=== PATIENT | male | born 1990 | race Caucasian/White ===

== ENCOUNTER 2024-11-12 21:07 | Inpatient (IN) | payer BC, OTHER ==
[2024-11-12] MEDS ORDERED: Sodium Chloride 0.9% 10 ML Syringe FLUSH PRN (21:37)
[2024-11-12] MEDS: LORazepam 2 MG/ML SDV IVPUSH ONE ×2 (21:45→23:39)
[2024-11-12 21:47] LABS: BASOPHILS ABSOLUTE AUTO 0.0 K/mm3 (0.0-0.2); BASOPHILS PERCENT AUTO 0.3 % (0.0-1.0); EOSINOPHILS ABSOLUTE AUTO 0.0 K/mm3 (0.0-0.4); EOSINOPHILS PERCENT AUTO 0.0 % (0.0-6.0); IMMATURE GRAN ABSOLUTE AUTO 0.03 K/mm3 (0.00-0.05); IMMATURE GRAN PERCENT AUTO 0.3 % (0.0-0.4); LYMPHOCYTES ABSOLUTE AUTO 0.5 K/mm3 (1.0-4.8); LYMPHOCYTES PERCENT AUTO 4.4 % (24.0-44.0); MEAN PLATELET VOLUME 9.9 fl (9.4-12.4); MONOCYTES ABSOLUTE AUTO 1.4 K/mm3 (0.0-0.8); MONOCYTES PERCENT AUTO 13.4 % (0.0-8.0); NEUTROPHILS ABSOLUTE AUTO 8.4 K/mm3 (1.8-7.7); NEUTROPHILS PERCENT AUTO 81.6 % (41.0-71.0); NRBC ABSOLUTE 0.00 (0.00-0.02); NRBC PERCENT 0.0 % (0.0-0.2); PLATELET COUNT,PLT 223 K/mm3 (150-400); RED BLOOD CELL COUNT 5.47 M/mm3 (4.52-5.90); WHITE BLOOD CELL COUNT,WBC 10.33 K/mm3 (3.9-11.3)
[2024-11-12 21:55] LABS: A/G RATIO 1.0 (1-2); ALANINE AMINOTRANSFERASE,ALT 141.0 U/L (16-63); ASPARTATE AMNIOTRANSFERASE,AST 213.0 U/L (15-37); BILIRUBIN TOTAL 0.9 mg/dL (0.2-1.0); BLOOD UREA NITROGEN,BUN 11.0 mg/dL (7-18); CARBON DIOXIDE,CO2 15.0 mEq/L (21-32); CHLORIDE,CL 93.0 mEq/L (98-107); CREATININE 1.1 mg/dL (0.7-1.3); EST CRCL DRUG DOSING (CG) 97.7 mL/min; ESTIMATED GFR 90.0 mL/min (>60); GLUCOSE RANDOM 106.0 mg/dL (70-99); PROTEIN TOTAL,TP 8.4 g/dl (6.4-8.2); SODIUM,NA 135.0 mEq/L (136-145)
[2024-11-12 22:25] LABS: ETHANOL BLOOD MEDICAL 0.0 gm% (0.00)
[2024-11-12 22:26] LABS: POTASSIUM,K 4.8 mEq/L (3.5-5.1)
[2024-11-12] MEDS: Ondansetron 4 MG/2 ML SDV IVPUSH ONE (23:40)
[2024-11-13] MEDS: LORazepam 2 MG/ML SDV IVPUSH ONE ×2 (00:53→07:27)
[2024-11-13] MEDS ORDERED: LORazepam 2 MG/ML SDV IVPUSH PRN ×2 (00:54→11:10)
[2024-11-13 06:32] LABS: BASOPHILS ABSOLUTE AUTO 0.0 K/mm3 (0.0-0.2); BASOPHILS PERCENT AUTO 0.5 % (0.0-1.0); EOSINOPHILS ABSOLUTE AUTO 0.0 K/mm3 (0.0-0.4); EOSINOPHILS PERCENT AUTO 0.3 % (0.0-6.0); IMMATURE GRAN ABSOLUTE AUTO 0.02 K/mm3 (0.00-0.05); IMMATURE GRAN PERCENT AUTO 0.3 % (0.0-0.4); LYMPHOCYTES ABSOLUTE AUTO 0.9 K/mm3 (1.0-4.8); LYMPHOCYTES PERCENT AUTO 13.7 % (24.0-44.0); MEAN PLATELET VOLUME 9.9 fl (9.4-12.4); MONOCYTES ABSOLUTE AUTO 1.7 K/mm3 (0.0-0.8); MONOCYTES PERCENT AUTO 25.5 % (0.0-8.0); NEUTROPHILS ABSOLUTE AUTO 3.9 K/mm3 (1.8-7.7); NEUTROPHILS PERCENT AUTO 59.7 % (41.0-71.0); NRBC ABSOLUTE 0.00 (0.00-0.02); NRBC PERCENT 0.0 % (0.0-0.2); PLATELET COUNT,PLT 181 K/mm3 (150-400); RED BLOOD CELL COUNT 4.75 M/mm3 (4.52-5.90); WHITE BLOOD CELL COUNT,WBC 6.59 K/mm3 (3.9-11.3)
[2024-11-13 06:35] LABS: A/G RATIO 0.9 (1-2); ALANINE AMINOTRANSFERASE,ALT 110.0 U/L (16-63); ASPARTATE AMNIOTRANSFERASE,AST 188.0 U/L (15-37); BILIRUBIN TOTAL 1.2 mg/dL (0.2-1.0); BLOOD UREA NITROGEN,BUN 10.0 mg/dL (7-18); CARBON DIOXIDE,CO2 23.0 mEq/L (21-32); CHLORIDE,CL 98.0 mEq/L (98-107); CREATININE 0.9 mg/dL (0.7-1.3); EST CRCL DRUG DOSING (CG) 119.41 mL/min; ESTIMATED GFR 115.0 mL/min (>60); GLUCOSE RANDOM 92.0 mg/dL (70-99); PHOSPHORUS 2.3 mg/dL (2.6-4.7); POTASSIUM,K 4.6 mEq/L (3.5-5.1); PROTEIN TOTAL,TP 6.8 g/dl (6.4-8.2); SODIUM,NA 135.0 mEq/L (136-145)
[2024-11-13] MEDS ORDERED: Sennosides/Docusate Sodium 50-8.6 MG Tab PO PRN (11:17)
[2024-11-13] MEDS ORDERED: Acetaminophen/HYDROcodone 325-5 MG Tab PO PRN (11:17)
[2024-11-13] MEDS ORDERED: Ondansetron 4 MG/2 ML SDV IV PRN (11:17)
[2024-11-14 05:51] LABS: A/G RATIO 0.9 (1-2); ALANINE AMINOTRANSFERASE,ALT 96.0 U/L (16-63); ASPARTATE AMNIOTRANSFERASE,AST 150.0 U/L (15-37); BILIRUBIN TOTAL 1.0 mg/dL (0.2-1.0); BLOOD UREA NITROGEN,BUN 8.0 mg/dL (7-18); CARBON DIOXIDE,CO2 27.0 mEq/L (21-32); CHLORIDE,CL 99.0 mEq/L (98-107); CREATININE 0.6 mg/dL (0.7-1.3); EST CRCL DRUG DOSING (CG) 179.12 mL/min; ESTIMATED GFR 130.0 mL/min (>60); GLUCOSE RANDOM 96.0 mg/dL (70-99); PHOSPHORUS 2.1 mg/dL (2.6-4.7); POTASSIUM,K 4.0 mEq/L (3.5-5.1); PROTEIN TOTAL,TP 6.3 g/dl (6.4-8.2); SODIUM,NA 134.0 mEq/L (136-145)
[2024-11-14 06:46] LABS: FOLIC ACID 9.5 ng/mL (8.6-58.9)
[2024-11-14 07:56] LABS: VITAMIN D,25-HYDROXY 30.0 ng/ml (30.0-100.0)
[2024-11-14] MEDS: Cyanocobalamin (Vitamin B12) 1,000 MCG Tab PO SCH (08:23)
[2024-11-15 07:30] LABS: BLOOD UREA NITROGEN,BUN 10.0 mg/dL (7-18); CARBON DIOXIDE,CO2 30.0 mEq/L (21-32); CHLORIDE,CL 100.0 mEq/L (98-107); CREATININE 0.7 mg/dL (0.7-1.3); EST CRCL DRUG DOSING (CG) 153.53 mL/min; ESTIMATED GFR 124.0 mL/min (>60); GLUCOSE RANDOM 91.0 mg/dL (70-99); PHOSPHORUS 3.8 mg/dL (2.6-4.7); SODIUM,NA 137.0 mEq/L (136-145)
[2024-11-15 07:39] LABS: POTASSIUM,K 3.8 mEq/L (3.5-5.1)
== END 2024-11-15 13:06 | disposition home or self-care (01) | DRG 897 ==
LOC: JD.ED 21:07 → JD.ICU 11-13 01:03 → UNDOADMIN 11-13 01:44 → JD.ICU 11-13 01:44 → JD.MS 11-14 16:20
PROVIDERS: ADMIT Student in an Organized Health Care Education/Training Program; ATTEND Student in an Organized Health Care Education/Training Program
PROC: HZ2ZZZZ Detoxification Services for Substance Abuse Treatment (ICD-10-PCS; principal; 2024-11-13)
DX: F10.90 Alcohol use, unspecified, uncomplicated (principal); E87.1 Hypo-osmolality and hyponatremia; F41.9 Anxiety disorder, unspecified; R74.01 Elevation of levels of liver transaminase levels; E83.42 Hypomagnesemia; E83.39 Other disorders of phosphorus metabolism; K76.0 Fatty (change of) liver, not elsewhere classified; Z86.16 Personal history of COVID-19
CPT/HCPCS: 36415; 76705; 76705-26; 80048; 80053; 80307; 82306; 82607; 82746; 83735; 84100; 84425; 85025; 96361; 96374; 96375; 96376; 99285; 99285-25; A9270-GY; J1650; J2060; J2405; J3490; J7030; J7050